=== PATIENT | female | born 1960 | race Caucasian/White ===

== ENCOUNTER 2023-02-24 10:32 | Emergency (ER) | payer BC, SELFPAY ==
[2023-02-24 10:46] VITALS: BP 153/65; PULSE 100; RESP 14; TEMP 36.8; O2SAT 100
[2023-02-24 11:00] VITALS: BP 153/65; PULSE 100; RESP 14; TEMP 36.8; O2SAT 100
--- NOTE | 2023-02-24 11:08 | ED.EAR ---
HPI - Ear Problem General Chief complaint: Ear Stated complaint: pressure in left ear,neck pain Time Seen by Provider: 02/24/23 11:08 Source: patient, RN notes reviewed and old records reviewed Mode of arrival: ambulatory Limitations: no limitations History of Present Illness HPI Narrative: 62-year-old female who presents to [facility] with complaints of bilateral ear pressure for the pat 3-4 days with left ear greater than right. Patient reports that pain in her left ear is 5/10 aching with decreased hearing and some pain down into her neck below her ear. Patient states that her granddaughter had some Amoxicillin left over from a dental problem and she has been taking it for the past 2 days 3X a day and taking Ibuprofen for her pain. She states that she did home COVID test which was negative. MD Complaint: ear pain and decreased hearing Location: bilateral (left greater than right) Severity: moderate Discharge from ear: Reports no Treatment prior to arrival: other (Ibuprofen and some Amoxicillin 6 doses) Related Data Home Medications Medication Instructions Recorded Confirmed amlodipine 10 mg tablet mg 02/24/23 atorvastatin 10 mg tablet mg 02/24/23 losartan 50 mg tablet mg 02/24/23 Allergies Allergy/AdvReac Type Severity Reaction Status Date / Time No Known Allergies Allergy Verified 02/24/23 10:34 Review of Systems Review of Systems: CONSTITUTIONAL: Denies malaise, chills, sweats, or fever. EYES: Denies visual changes, redness, or discharge. ENT: Reports rhinorrhea, congestion, sinus pain,left otalgia and no sore throat. CARDIOVASCULAR: Denies chest pain, palpitations, or edema. RESPIRATORY: Reports no cough.? Denies dyspnea. GASTROINTESTINAL: Denies abdominal pain, nausea, vomiting, diarrhea SKIN: Denies rash or itching. MUSCULOSKELETAL: Denies myalgia. NEUROLOGIC: Denies headache. All systems reviewed & are unremarkable except as noted in HPI and below PMFSH Past Medical History Medical History (Updated 02/25/23 @ 15:52 by Genia Lowe NP) COVID-19 Hyperlipidemia Hypertension Surgical History Surgical History (Updated 02/25/23 @ 15:50 by Genia Lowe NP) H/O: hysterectomy Social History Social History (Updated 02/25/23 @ 15:53 by Genia Lowe NP) Smoking status: Current every day smoker Alcohol intake: current Alcohol use details: rare Substance use type: does not use Living arrangements: with family Gender identity (if verbalized by the patient): Female Comments At time of signature, agree with nursing past medical, surgical, social and family history. There is no relevant family history pertinent to the presenting complaint Exam Narrative: GENERAL: Well-appearing, well-nourished, and in no acute distress. HEAD: Normocephalic EYES: PERRLA, conjunctivae clear ENT: Nares clear, turbinates edematous and erythematous, clear discharge. Mucous membranes moist.Right TM pearly burroughs with dull light reflex, left ear canal impacted with brown cerumen once cleared left TM red and ear canal red and with some excoriation, no drainage, no tragal tenderness or any pain to mastoid area behind left ear. Oropharynx erythematous without lesions. Tonsils not enlarged and without exudate, no drooling, no hoarseness, no trismus, uvula midline. NECK: Supple. No lymphadenopathy CHEST: Clear to auscultation, breath sounds equal. No wheezing, rhonchi, rales, or stridor. No respiratory distress, speaks in full sentences.SAO2 100% on room air HEART: Regular rate and rhythm. No murmur heard. SKIN: Warm, dry, no rash. NEURO: Alert and oriented x3. PSYCH: Normal mood and affect Course Course Emergency Course: Patient is aware of diagnosis, understands and agrees to treatment plan.? Anticipatory guidance given.? Patient agrees to follow-up as directed and is aware of reasons to seek care at the emergency department. Portions of this record may
--- NOTE | 2023-02-24 11:17 | PC.NURSE ---
ear irrigation set up at bedside.
== END 2023-02-24 11:48 | disposition home or self-care (01) ==
PROVIDERS: Emergency Provider Registered Nurse
DX: H61.22 Impacted cerumen, left ear (principal); H65.02 Acute serous otitis media, left ear; H60.312 Diffuse otitis externa, left ear; F17.200 Nicotine dependence, unspecified, uncomplicated; E78.5 Hyperlipidemia, unspecified; I10 Essential (primary) hypertension; Z86.16 Personal history of COVID-19
CPT/HCPCS: 69209; 99213; G0463